=== PATIENT | male | born 1975 | race American Indian/Alaskan Native ===

== ENCOUNTER 2017-09-04 02:08 | Inpatient (IN) | payer OTHER ==
[2017-09-04 04:30] LABS: Basophils % (Auto) 0.1 % (0.0-1.8); Eosinophils % (Auto) 0.1 % (0.0-4.3); Hematocrit 53.5 % (35.5-45.6); Hemoglobin 18.1 gm/dl (11.8-15.2); Lymphocytes # (Auto) 1.2 K/mm3 (1.2-5.4); Lymphocytes % (Auto) 8.9 % (13.4-35.0); Mean Corpuscular HGB Conc 34 % (32-34); Mean Corpuscular Hemoglobin 34 pg (28-32); Mean Corpuscular Volume 100 fl (84-94); Monocytes % (Auto) 7.5 % (0.0-7.3); Platelet Count 299 K/mm3 (140-440); Red Blood Count 5.37 M/mm3 (3.65-5.03); Red Cell Distribution Width 13.3 % (13.2-15.2)
[2017-09-04 04:31] LABS: Alanine Aminotransferase 14 units/L (7-56); Albumin 5.4 g/dL (3.9-5); BUN/Creatinine Ratio 13; Blood Urea Nitrogen 13 mg/dL (9-20); Calcium 10.2 mg/dL (8.4-10.2); Hemolysis Index 19
[2017-09-04 07:12] LABS: Bilirubin,Urine NEG (Negative); Blood,Urine LG (Negative); Color,Urine Yellow (Yellow); Mucus,Urine FEW /HPF; Nitrite,Urine NEG (Negative); Urobilinogen,Urine < 2.0 mg/dL (<2.0)
--- NOTE | 2017-09-04 08:43 | Emergency Department Report ---
HPI - General Chief Complaint: Abdominal Pain Time Seen by Provider: 09/04/17 07:37 - HPI HPI: This is a 42-year-old male presents to the emergency department with lower abdominal discomfort and some gross blood seen in his urine since yesterday. He denies any difficulty urinating. He denies any fever , nausea, vomiting, back pain, penile or testicular pain or swelling. He denies any past medical history. He is a tobacco smoker. He did not take anything for his symptoms prior to presentation. No recent travel or sick contacts at home. He does not have a primary care physician. ED Past Medical Hx - Past Medical History Previous Medical History?: Yes Hx Asthma: Yes - Surgical History Past Surgical History?: No - Social History Smoking Status: Current Every Day Smoker Substance Use Type: Alcohol - Medications Home Medications: Home Medications Medication Instructions Recorded Confirmed Last Taken Type No Known Home Medications [No 09/04/17 09/04/17 Unknown History Reported Home Medications] ED Review of Systems ROS: Stated complaint: BLEEDING IN URINE Other details as noted in HPI Comment: All other systems reviewed and negative Constitutional: denies: chills, fever Eyes: denies: eye pain, eye discharge, vision change ENT: denies: ear pain, throat pain Respiratory: denies: cough, shortness of breath, wheezing Cardiovascular: denies: chest pain, palpitations Gastrointestinal: abdominal pain. denies: nausea, vomiting, diarrhea Genitourinary: hematuria. denies: dysuria Musculoskeletal: denies: back pain, joint swelling, arthralgia Skin: denies: rash, lesions Neurological: denies: headache, weakness, paresthesias Physical Exam - Physical Exam Vital Signs: Vital Signs 09/04/17 09/04/17 03:22 08:04 Temperature 98.4 F Pulse Rate 86 Respiratory 17 18 Rate Blood Pressure 165/108 O2 Sat by Pulse 99 99 Oximetry Physical Exam: GENERAL: The patient is well-developed well-nourished. HENT: Normocephalic. Atraumatic. Patient has moist mucous membranes. EYES: Extraocular motions are intact. Pupils equal reactive to light bilaterally. NECK: Supple. Trachea is midline. CHEST/LUNGS: Clear to auscultation. There is no respiratory distress noted. HEART/CARDIOVASCULAR: Regular. There is mild to moderate tachycardia. There is no murmur. ABDOMEN: Abdomen is soft. Patient has reproducible lower quadrant tenderness to palpation. No guarding or rebound tenderness. Patient has normal bowel sounds. There is no abdominal distention. SKIN: Skin is warm and dry. NEURO: The patient is awake, alert, and oriented. The patient is cooperative. The patient has no focal neurologic deficits. The patient has normal speech. MUSCULOSKELETAL: There is no tenderness or deformity. There is no limitation range of motion. There is no evidence of acute injury. ED Course Vital Signs 09/04/17 09/04/17 03:22 08:04 Temperature 98.4 F Pulse Rate 86 Respiratory 17 18 Rate Blood Pressure 165/108 O2 Sat by Pulse 99 99 Oximetry ED Medical Decision Making - Lab Data Result diagrams: 09/04/17 03:47 09/04/17 03:47 - Radiology Data Radiology results: report reviewed CT abdomen and pelvis with contrast: Abdominal pain, hematuria. Following IV administration of contrast transverse images are obtained from the low chest and ischium with coronal and sagittal 2-D reformatted images. The visualized lung bases are normal. There is moderate fluid filled distention of the stomach. The abdominal structures are otherwise unremarkable. The retroperitoneal organs are also unremarkable except for a 3 cm cyst in the left kidney. No evidence of renal calculus. There is diffuse fluid filled distention of small bowel loops. No transitional zone noted. The colon is decompressed. The pelvic structures appear unremarkable. There is no adenopathy. The abdominal aorta and its major branches are unremarkable. Impressions: 1. Small bowel ileus. No obstruction identified. 2. Left renal cyst. Transcribed By: [facility] Dictated By: MADDIE VIVEROS MD Electronically Authenticated By: MADDIE VIVEROS MD Signed Date/Time: 09/04/17 0958 - Medical Decision Making Patient presented with some lower abdominal pain and gross hematuria. He does have 25 red blood cells in the urine. A CT scan was done to look for kidney stone versus malignancy versus other and it came back showing a small bowel ileus. Patient had some sustained tachycardia. He was given IV fluid and pain medication. He will be admitted to the hospital for further evaluation and treatment. - Differential Diagnosis SBO, ileus, nephrolithiasis, malignancy Critical Care Time: No Critical care attestation.: If time is entered above; I have spent that time in minutes in the direct care of this critically ill patient, excluding procedure time. ED Disposition Clinical Impression: Ileus Abdominal pain Qualifiers: Abdominal location: lower abdomen, unspecified Qualified Code(s): R10.30 - Lower abdominal pain, unspecified Hematuria Qualifiers: Hematuria type: gross Qualified Code(s): R31.0 - Gross hematuria Hypertension Qualifiers: Hypertension type: essential hypertension Qualified Code(s): I10 - Essential ( primary) hypertension Disposition: OP ADMIT IP TO THIS HOSP Is pt being admited?: Yes Condition: Stable
[2017-09-04] MEDS ORDERED: NACL ONE (09:04)
--- NOTE | 2017-09-04 10:16 | Cat Scan Report ---
CT abdomen and pelvis with contrast: Abdominal pain, hematuria. Following IV administration of contrast transverse images are obtained from the low chest and ischium with coronal and sagittal 2-D reformatted images. The visualized lung bases are normal. There is moderate fluid filled distention of the stomach. The abdominal structures are otherwise unremarkable. The retroperitoneal organs are also unremarkable except for a 3 cm cyst in the left kidney. No evidence of renal calculus. There is diffuse fluid filled distention of small bowel loops. No transitional zone noted. The colon is decompressed. The pelvic structures appear unremarkable. There is no adenopathy. The abdominal aorta and its major branches are unremarkable. Impressions: 1. Small bowel ileus. No obstruction identified. 2. Left renal cyst.
[2017-09-04] MEDS ORDERED: MORPHINE IV ONE (11:43)
[2017-09-04] MEDS ORDERED: NACL 0.9% 1000 ML 1,000 ML IV ONE ×2 (11:43→13:13)
--- NOTE | 2017-09-04 22:54 | Event Note ---
Date: 09/04/17 See dictated H/p in reports Hematuria Polycythemia Nicotine dependence
[2017-09-05] MEDS ORDERED: TYLENOL PO PRN ×2 (01:16→07:09)
[2017-09-05] MEDS ORDERED: NACL 0.9% 500 ML 500 ML IV ONE (06:54)
[2017-09-05] MEDS ORDERED: ROCEPHIN/NS 2 GM/100 ML 2 GM/100 ML BAG IV SCH (07:00)
[2017-09-05] MEDS ORDERED: PERCOCET 5/325 PO PRN (07:09)
[2017-09-05] MEDS ORDERED: MILK OF MAGNESIA PO PRN (07:09)
[2017-09-05] MEDS ORDERED: MORPHINE IV PRN ×2 (07:09→10:00)
[2017-09-05] MEDS ORDERED: DILAUDID IV PRN (07:09)
[2017-09-05] MEDS ORDERED: ZOFRAN IV PRN ×2 (07:09→09:01)
--- NOTE | 2017-09-05 07:25 | History and Physical Report ---
CHIEF COMPLAINT: 1. Abdominal pain. 2. Blood in the urine since yesterday. HISTORY OF PRESENT ILLNESS: A 42-year-old -[place] male with a history of asthma who comes in for gross blood in the urine since yesterday. Denies any difficulty in urination. No testicular pain. Small testicular nodule on the left testicle as per the patient. Smokes over a pack a day. No other symptoms. No fever, no chills. PAST MEDICAL HISTORY: Significant for asthma. PAST SURGICAL HISTORY: None. SOCIAL HISTORY: Smokes a pack a day. FAMILY HISTORY: Hypertension. REVIEW OF SYSTEMS: Significant for blood in the urine and a small testicular nodule. Otherwise, review of systems is essentially negative. No fever, no chills. PHYSICAL EXAMINATION: GENERAL: Young male, cooperative during examination. VITAL SIGNS: Blood pressure ____, temperature 98.4, pulse is 86, respirations are 17. HEENT: Unremarkable. Pupils equal and reactive. NECK: Supple, no lymphadenopathy, no thyromegaly. LUNGS: Clear to auscultation and percussion. Good air entry. CARDIOVASCULAR: S1, S2 heard. No gallop, no murmur, no rub. Apical impulse in left fifth intercostal space and midclavicular line. ABDOMEN: Soft and benign. No hepatosplenomegaly. No guarding, no rigidity. Hernial orifices are normal. EXTREMITIES: Good pedal pulses. No pedal edema. CENTRAL NERVOUS SYSTEM: Alert and oriented x 4, nonfocal exam. GENITOURINARY: Small nodule in the medial aspect of the left testicle present, about 1 x 1 cm, irregular in consistency. LABORATORY DATA: Significant for hemoglobin of 18.1, hematocrit of 53.5, WBC count is 13,000. Electrolytes are normal. Albumin is 5.4, total protein is 8.3. Urine specific gravity is 1.021. No white blood cells and leukocyte esterase is negative. ASSESSMENT AND PLAN: 1. Hemorrhagic cystitis, etiology unclear. The patient will be started on empiric antibiotics for possible infection. Urine does not indicate infection. The patient may need cystoscopy to rule out any bladder tumor. Also, rule out any kidney stones causing gross hematuria. 2. Polycythemia, probably secondary to chronic hypoxia secondary to smoking. IV fluids for the time being. The patient to see market manager/oncologist as outpatient for possible polycythemia. 3. Hypertension. The patient's blood pressure in the Emergency Room was high, but later came down to normal. We will trend the blood pressure readings, initiate on antihypertensives if necessary. 4. Deep venous thrombosis prophylaxis, SCDs only. JOB# [id number] ONEL/NTS
[2017-09-05 07:56] VITALS: BP 171/112
[2017-09-05] MEDS ORDERED: D5NS 1,000 ML IV SCH ×2 (08:00→10:00)
[2017-09-05] MEDS ORDERED: DULCOLAX PR PRN (10:00)
[2017-09-05] MEDS ORDERED: PROTONIX IV SCH (10:00)
[2017-09-05] MEDS ORDERED: PEPCID PO SCH (10:00)
[2017-09-05] MEDS ORDERED: cefTRIAXone 2 GM in NACL 0.9% 20 ML IV SCH (10:00)
--- NOTE | 2017-09-05 10:38 | Discharge Summary ---
Providers - Providers Date of Admission: 09/04/17 12:08 Date of discharge: 09/05/17 Attending physician: AZUL CABRAL 09/05/17 06:56 Consult to Physician [CONS] Routine Consulting Provider: MIRIAN FOURNIER Reason For Exam: Hematuria Notified:: yes Primary care physician: DIONISIO JONES Hospitalization Condition: Stable Disposition: DC-07 LEFT AGAINST MED ADVICE Exam - Constitutional Vitals: Temp Pulse Resp BP Pulse Ox 99.1 F 96 H 20 122/80 98 09/04/17 21:57 09/05/17 01:09 09/05/17 01:09 09/05/17 01:09 09/05/17 01:09 Plan Follow up with: PRIMARY MD SYLVIA [Referring] - 3-5 Days
== END 2017-09-05 05:35 | disposition left against medical advice (07) | DRG 690 ==
LOC: ED 02:08 → 3A 12:08
PROVIDERS: ADMIT Internal Medicine; ATTEND Internal Medicine
DX: N30.91 Cystitis, unspecified with hematuria (principal); K56.7 Ileus, unspecified; I10 Essential (primary) hypertension; F17.210 Nicotine dependence, cigarettes, uncomplicated; J45.909 Unspecified asthma, uncomplicated; D75.1 Secondary polycythemia; Z53.21 Procedure and treatment not carried out due to patient leaving prior to being seen by health care provider
CPT/HCPCS: 36415; 74177; 80053; 81001; 85025; 96374; C9113; J0696; J2270; J7030; Q9967

== ENCOUNTER 2020-06-27 03:32 | Emergency (ER) | payer SELFPAY ==
[2020-06-27 06:26] LABS: Basophils % (Auto) 0.2 % (0.0-1.8); Eosinophils # (Auto) 0.1 K/mm3 (0.0-0.4); Eosinophils % (Auto) 0.6 % (0.0-4.3); Hemoglobin 14.1 gm/dl (11.8-15.2); Lymphocytes # (Auto) 3.4 K/mm3 (1.2-5.4); Lymphocytes % (Auto) 35.8 % (13.4-35.0); Mean Corpuscular HGB Conc 35 % (32-34); Mean Corpuscular Volume 99 fl (84-94); Monocytes # (Auto) 0.9 K/mm3 (0.0-0.8); Monocytes % (Auto) 9.3 % (0.0-7.3); Platelet Count 289 K/mm3 (140-440); Red Blood Count 4.04 M/mm3 (3.65-5.03); Red Cell Distribution Width 12.8 % (13.2-15.2)
[2020-06-27 06:30] LABS: BUN/Creatinine Ratio 10; Blood Urea Nitrogen 9 mg/dL (9-20); Calcium 9.8 mg/dL (8.4-10.2); Hemolysis Index 6
--- NOTE | 2020-06-27 08:25 | Emergency Department Report ---
ED Psych HPI - General Chief Complaint: Psych Stated Complaint: AMS/SI Source: patient Mode of arrival: Ambulatory - Related Data Home Medications Medication Instructions Recorded Confirmed Last Taken No Known Home Medications [No 09/04/17 09/04/17 Unknown Reported Home Medications] Allergies Allergy/AdvReac Type Severity Reaction Status Date / Time No Known Allergies Allergy Unverified 09/04/17 03:27 ED Review of Systems ROS: Stated complaint: AMS/SI Other details as noted in HPI ED Past Medical Hx - Past Medical History Previous Medical History?: Yes Hx Hypertension: Yes Hx Psychiatric Treatment: Yes (depression) Hx Asthma: Yes Hx HIV: No - Surgical History Past Surgical History?: Yes - Social History Smoking Status: Current Every Day Smoker - Medications Home Medications: Home Medications Medication Instructions Recorded Confirmed Last Taken Type No Known Home Medications [No 09/04/17 09/04/17 Unknown History Reported Home Medications] ED Physical Exam - General Limitations: No Limitations ED Course Vital Signs 06/27/20 05:31 Temperature 98.6 F Pulse Rate 80 Respiratory 20 Rate Blood Pressure 144/102 O2 Sat by Pulse 96 Oximetry ED Medical Decision Making - Lab Data Result diagrams: 06/27/20 05:48 06/27/20 05:48 Critical care attestation.: If time is entered above; I have spent that time in minutes in the direct care of this critically ill patient, excluding procedure time. ED Disposition Condition: Stable Referrals: PRIMARY CARE, [Primary Care Provider] - 3-5 Days
--- NOTE | 2020-06-27 12:02 | Emergency Department Report ---
ED Psych HPI - General Chief Complaint: Psych Stated Complaint: AMS/SI Time Seen by Provider: 06/27/20 11:40 Source: patient Mode of arrival: Ambulatory - History of Present Illness Initial Comments: Patient is a 45-year-old male with past medical history of hypertension not curr ently on medications who presents to the emergency department with complaint of suicidal ideations. Patient states that he has been stressed. He also reports feelings of depression. He states that he has a plan to kill himself by walking in front of a truck. He states he has similar feelings about 1 year prior and attempted suicide at that time. Patient states that he does not have any medica l complaints at this time and denies any chest pain, shortness of breath, extremity pain. He denies any contact with anyone who has tested positive for COVID-19. MD Complaint: suicidal ideation Associated Psychiatric Symptoms: suicidal ideation History of same: Yes Associated Symptoms: denies other symptoms. denies: headache, shortness of breath, nausea, vomiting, syncope Treatments Prior to Arrival: none If Self Harm: has plan - Related Data Home Medications Medication Instructions Recorded Confirmed Last Taken No Known Home Medications [No 09/04/17 06/27/20 Unknown Reported Home Medications] Allergies Allergy/AdvReac Type Severity Reaction Status Date / Time No Known Allergies Allergy Unverified 09/04/17 03:27 ED Review of Systems ROS: Stated complaint: AMS/SI Other details as noted in HPI Constitutional: denies: fever Eyes: denies: eye pain ENT: denies: throat pain Respiratory: denies: cough Cardiovascular: denies: chest pain Endocrine: no symptoms reported Gastrointestinal: denies: abdominal pain Genitourinary: denies: dysuria Musculoskeletal: denies: back pain Skin: denies: rash Neurological: denies: headache Psychiatric: anxiety, depression, suicidal thoughts. denies: auditory hallucinations, visual hallucinations Hematological/Lymphatic: denies: easy bleeding ED Past Medical Hx - Past Medical History Previous Medical History?: Yes Hx Hypertension: Yes Hx Psychiatric Treatment: Yes (depression) Hx Asthma: Yes Hx HIV: No - Surgical History Past Surgical History?: Yes - Social History Smoking Status: Current Every Day Smoker - Medications Home Medications: Home Medications Medication Instructions Recorded Confirmed Last Taken Type No Known Home Medications [No 09/04/17 06/27/20 Unknown History Reported Home Medications] ED Physical Exam - General Limitations: No Limitations General appearance: alert, in no apparent distress - Head Head exam: Present: atraumatic, normocephalic - Eye Eye exam: Present: normal appearance Pupils: Present: normal accommodation - ENT ENT exam: Present: normal exam - Neck Neck exam: Present: normal inspection - Respiratory Respiratory exam: Present: normal lung sounds bilaterally. Absent: respiratory distress - Cardiovascular Cardiovascular Exam: Present: regular rate, normal rhythm - GI/Abdominal GI/Abdominal exam: Present: soft. Absent: distended, tenderness - Rectal Rectal exam: Present: deferred - Extremities Exam Extremities exam: Present: normal inspection - Back Exam Back exam: Present: normal inspection - Neurological Exam Neurological exam: Present: alert, oriented X3 - Psychiatric Psychiatric exam: Present: depressed, suicidal ideation - Skin Skin exam: Present: warm, dry, intact ED Course Vital Signs 06/27/20 06/27/20 06/27/20 05:31 11:35 11:36 Temperature 98.6 F 97.6 F Pulse Rate 80 74 Respiratory 20 18 18 Rate Blood Pressure 144/102 Blood Pressure 174/97 [Right] O2 Sat by Pulse 96 98 97 Oximetry ED Medical Decision Making - Lab Data Result diagrams: 06/27/20 05:48 06/27/20 05:48 - EKG Data -: EKG Interpreted by Al EKG shows normal: sinus rhythm, axis, QRS complexes - EKG Data Interpretation: normal EKG - Medical Decision Making 45-year-old male with history of depression, hypertension, asthma here with suicidal ideations. Patient does not have any medical complaints at this time. Patient reports that he has a plan to commit suicide by walking in front of a truck. Patient is placed under a 1013. Patient has a mental health evaluation pending. Patient likely needs to stay on a 72-hour hold while we attempt to find placement in a psychiatric facility. 1527 Labs are grossly normal. EKG is normal. Patient is medically cleared for psychiatric evaluation for suicidal ideations. Critical care attestation.: If time is entered above; I have spent that time in minutes in the direct care of this critically ill patient, excluding procedure time. ED Disposition Clinical Impression: Hypertension, Suicidal ideation Disposition: DC/TX-65 PSY HOSP/PSY UNIT Is pt being admited?: No Condition: Stable Instructions: Hypertension (ED) Referrals: PRIMARY CARE, [Primary Care Provider] - 3-5 Days
[2020-06-27 12:05] LABS: Bilirubin,Urine NEG (Negative); Blood,Urine MOD (Negative); Color,Urine Yellow (Yellow); Mucus,Urine FEW /HPF; Protein,Urine <15 mg/dL mg/dL (Negative); Urobilinogen,Urine < 2.0 mg/dL (<2.0); WBC,Urine < 1.0 /HPF (0.0-6.0)
[2020-06-27 12:10] LABS: Amphetamine Screen,Urine Negative; Benzodiazepines Screen,Urine Negative; Cocaine Screen,Urine Negative; Methadone Screen,Urine Negative; Opiate Screen,Urine Negative
[2020-06-27 13:09] LABS: Cannabinoid Screen,Urine PRESUMPTIVE POSITIVE
[2020-06-28 07:39] VITALS: BP 174/100
--- NOTE | 2020-06-28 09:18 | Consultation ---
History of Present Illness - Reason for Consult Consult date: 06/28/20 Reason for consult: MHE Requesting physician: FILEMON JONES - History of Present Psychiatric Illness Per ED Provider: Patient is a 45-year-old male with past medical history of hypertension not currently on medications who presents to the emergency department with complaint of suicidal ideations. Patient states that he has been stressed. He also reports feelings of depression. He states that he has a plan to kill himself by walking in front of a truck. He states he has similar feelings about 1 year prior and attempted suicide at that time. Patient states that he does not have any medical complaints at this time and denies any chest p ain, shortness of breath, extremity pain. He denies any contact with anyone who has tested positive for COVID-19. PSYCH HPI Patient is a 45-year-old single, employed -[place] male who currently resides with his sister with past psychiatric history of depression and bipolar and past medical history of asthma and hypertension who presented to the ED with chief complaint of suicidal ideation after getting into an argument with his longtime girlfriend. Patient reported was just released from retirement yesterday, was locked up because of a warrant in which she had failed to appear at court house. Prior to being arrested, on Friday patient reported he had gotten argument with his girlfriend after she allowed kids that she had from another relationship to moving with her into the apartment that he was paying for, or after getting released from retirement he was having homicidal ideation towards her and also towards himself he still feels like that this morning. PAST PSYCHIATRIC HISTORY Diagnoses: Bipolar Suicide attempts or Self-harm behavior: None reported Prior psychiatric hospitalizations: None reported Substance Abuse history: Alcohol and marijuana Previous psychiatric medications tried: None reported Outpatient treatment:None reported PAST MEDICAL HISTORY: Asthma and hypertension Family Psychiatric History: None reported or documented SOCIAL HISTORY Marital Status: Single with children Living Arrangements: Lives with sister Employment Status: Employed Access to guns/weapons:None reported Education: 12th grade History of Abuse: None reported Legal History: yes REVIEW OF SYSTEMS Constitutional: Negative for weight loss ENT: Negative for stridor Respiratory: Negative for cough or hemoptysis All other systems reviewed and are negative MENTAL STATUS EXAMINATION General Appearance and Behavior: Age appropriate, good hygiene, wearing appropriate clothes,, good eye contact Cooperation: Participating/engaged, but Guarded Psychomotor Behavior: Psychomotor normal Mood: depressed Affect and affective range: irritable, labile Thought Process: illogical Thought Content: hopelessness, helplessness Speech: Normal rate, volume and rythm Intellectual Functioning: Average Suicidal Ideation: SI Homicidal Ideation: HI Impulse Control: Impaired Insight and Judgment: Limited insight and judgment Memory: Normal Attention: Normal Orientation: Alert, oriented Diagnoses: Assessment and Plan - Psychiatric problem (1) Bipolar 1 disorder Status: Acute Treatment Plan MEDICATIONS: Patient is being transferred to another facility. Risks, benefits and alternatives of medications discussed with the patient, questions answered and consent obtained from patient. PSYCHOTHERAPY: Supportive psychotherapy provided MEDICAL: Per primary team DELIRIUM PRECAUTIONS: Please re-orient patient frequently, keep lights on during the day, and minimize benzodiazepines and opiates as these medications could worsen patient's confusion. GEOINT ANALYST: DISPOSITION: Do Recommend acute inpatient psychiatric hospitalization at this time LEGAL STATUS: 1013 FOLLOW-UP: Will follow Thank you for the consult. Please contact with any questions and/or concerns. Medications and Allergies Allergies Allergy/AdvReac Type Severity Reaction Status Date / Time No Known Allergies Allergy Unverified 09/04/17 03:27 Home Medications Medication Instructions Recorded Confirmed Last Taken Type No Known Home Medications [No 09/04/17 06/27/20 Unknown History Reported Home Medications] Mental Status Exam - Vital signs Last Vital Signs Temp 98.6 F 06/28/20 07:39 Pulse 71 06/28/20 07:39 Resp 18 06/28/20 07:39 BP 174/100 06/28/20 07:39 Pulse Ox 98 06/28/20 07:39 Results Result Diagrams: 06/27/20 05:48 06/27/20 05:48 All other labs normal. Assessment and Plan - Psychiatric problem (1) Bipolar 1 disorder Status: Acute
== END 2020-06-28 10:20 ==
LOC: ED 03:32
DX: I10 Essential (primary) hypertension (principal); F32.9 Major depressive disorder, single episode, unspecified; J45.909 Unspecified asthma, uncomplicated; F17.200 Nicotine dependence, unspecified, uncomplicated
CPT/HCPCS: 36415; 80048; 80307; 80320; 81001; 85025; 93005; G0480

== ENCOUNTER 2021-05-26 17:28 | Emergency (ER) | payer SELFPAY ==
[2021-05-26 17:36] VITALS: BP 135/94
[2021-05-26 18:05] LABS: Bilirubin,Urine NEG (Negative); Blood,Urine MOD (Negative); Color,Urine Yellow (Yellow)
[2021-05-26 18:06] LABS: Mucus,Urine 1+ /HPF
--- NOTE | 2021-05-26 18:27 | Emergency Department Report ---
ED Male HPI - General Chief complaint: Urogenital-Male Stated complaint: URINARY Time Seen by Provider: 05/26/21 18:19 Source: patient Mode of arrival: Ambulatory Limitations: No Limitations - History of Present Illness Initial comments: Patient presents with a several week to month history of decreased urinary stream. He has had difficulty with urination. He states that he has to stand up for a long period of time before he can initiate urination. He then has difficulty maintaining the stream. He does report he is able to empty his bladder. There is no pain associated with this. He has had no fevers or chills per there is no cough congestion. There is no history of recent travel or trauma. He has never had symptoms like this before. His brother is undergoing the same thing and told him that he had BPH. - Related Data Previous Rx's Medication Instructions Recorded Last Taken Type Tamsulosin [Flomax] 0.4 mg PO QDAY #30 cap 05/26/21 Unknown Rx Allergies Allergy/AdvReac Type Severity Reaction Status Date / Time No Known Allergies Allergy Verified 05/26/21 17:30 ED Review of Systems ROS: Stated complaint: URINARY Other details as noted in HPI Comment: All other systems reviewed and negative Constitutional: denies: fever Eyes: denies: eye pain ENT: denies: throat pain Respiratory: denies: cough Cardiovascular: denies: chest pain Endocrine: denies: unexplained weight loss Gastrointestinal: denies: abdominal pain Genitourinary: as per HPI Skin: denies: rash Neurological: denies: headache Hematological/Lymphatic: denies: easy bleeding ED Past Medical Hx - Past Medical History Hx Hypertension: Yes Hx Psychiatric Treatment: Yes (depression) Hx Asthma: Yes Hx HIV: No - Surgical History Past Surgical History?: No - Family History Family history: hypertension - Social History Smoking Status: Current Every Day Smoker (We discussed tobacco cessation x3 minutes) - Medications Home Medications: Home Medications Medication Instructions Recorded Confirmed Last Taken Type Tamsulosin [Flomax] 0.4 mg PO QDAY #30 cap 05/26/21 Unknown Rx ED Physical Exam - General Limitations: No Limitations, Other (Pulse ox noted and normal) General appearance: alert, in no apparent distress - Head Head exam: Present: atraumatic, normocephalic - Eye Eye exam: Present: normal appearance, EOMI. Absent: scleral icterus - ENT ENT exam: Present: normal exam, normal orophraynx - Neck Neck exam: Present: normal inspection. Absent: meningismus - Respiratory Respiratory exam: Present: normal lung sounds bilaterally. Absent: respiratory distress - Cardiovascular Cardiovascular Exam: Present: regular rate, normal rhythm - GI/Abdominal GI/Abdominal exam: Present: soft. Absent: tenderness - Extremities Exam Extremities exam: Present: normal capillary refill - Back Exam Back exam: Absent: CVA tenderness (R), CVA tenderness (L) - Neurological Exam Neurological exam: Present: alert, oriented X3, normal gait. Absent: motor sensory deficit - Psychiatric Psychiatric exam: Present: normal affect, normal mood - Skin Skin exam: Present: warm, dry ED Course Vital Signs 05/26/21 05/26/21 17:35 18:39 Temperature 98.7 F Pulse Rate 90 Respiratory 2 L 20 Rate Blood Pressure 135/94 O2 Sat by Pulse 94 Oximetry - Reevaluation(s) Reevaluation #1: 05/26/21 23:34 UA was noted and the patient was discharged. ED Medical Decision Making - Medical Decision Making Patient presents with a subacute complaint of decreased urinary stream. He had presented because there was concern of enlarged prostate recently. There was no evidence of urinary tract infection. He does not have a fever, abdominal pain, or tenesmus. I do not believe this represents prostatitis. He does not appear to be septic or toxic. There is no other neurologic symptoms though suggest this is a cord related issue. Patient was started on Flomax and referred for outpatient evaluation and follow-up. We did discuss the potential side effects of the medication. Critical Care Time: No Critical care attestation.: If time is entered above; I have spent that time in minutes in the direct care of this critically ill patient, excluding procedure time. ED Disposition Clinical Impression: BPH (benign prostatic hyperplasia) Qualifiers: Lower urinary tract symptom presence: symptoms present Lower urinary tract symptom detail: weak urinary stream Qualified Code(s): N40.1 - Benign prostatic hyperplasia with lower urinary tract symptoms Disposition: HOME / SELF CARE / HOMELESS Is pt being admited?: No Condition: Stable Instructions: Benign Prostatic Hyperplasia Additional Instructions: DRINK WATER. SEE YOUR DOCTOR FOR RECHECK. RETURN FOR PROBLEMS. Prescriptions: Tamsulosin [Flomax] 0.4 mg PO QDAY #30 cap Referrals: PRIMARY CARE, [Primary Care Provider] - 3-5 Days HAIM RAVI MD [Staff Physician] - 3-5 Days Forms: Work/School Release Form(ED)
== END 2021-05-26 18:42 | disposition home or self-care (01) ==
LOC: ED 17:28
DX: N40.1 Benign prostatic hyperplasia with lower urinary tract symptoms (principal); I10 Essential (primary) hypertension; J45.909 Unspecified asthma, uncomplicated; F32.9 Major depressive disorder, single episode, unspecified; F17.200 Nicotine dependence, unspecified, uncomplicated; Z79.899 Other long term (current) drug therapy
CPT/HCPCS: 81001; 99283